=== PATIENT | female | born 1990 | race Caucasian/White ===

== ENCOUNTER 2017-07-17 12:20 | Emergency (ER) | payer OTHER ==
[2017-07-17] MEDS ORDERED: TYLENOL EXTRA STRENGTH 500 MG PO STA (12:31)
[2017-07-17] MEDS ORDERED: Sodium Chloride 0.9% 1000 ML 1,000 ML IV STA (12:32)
[2017-07-17] MEDS ORDERED: Sodium Chloride 0.9% 1000 ML 1,000 ML ONE (12:33)
[2017-07-17] MEDS ORDERED: TYLENOL EXTRA STRENGTH 500 MG ONE (12:33)
[2017-07-17 12:39] LABS: Mean Cell Volume 90.9 fl (78-100); Mean Corpuscular Hemoglobin 29.5 pg (26-32); Platelet Count 332 K/mm3 (150-450); Red Blood Count 5.16 M/mm3 (4.1-5.4); Red Cell Distribution Width 14.3 % (11.5-14.0); White Blood Count 6.4 K/mm3 (4.0-10.5)
--- NOTE | 2017-07-17 12:40 | ERPHSYRPT ---
- History of Present Illness Time Seen by Provider: 07/17/17 12:26 Source: patient Exam Limitations: no limitations Patient Subjective Stated Complaint: PT STATES SHE WAS AWAKENED IN THE MIDDLE OF THE NIGHT WITH FEVER AND CHILLS. STATES SHE HAS BACK PAIN AND BODY ACHES. STATES SHE HAS A SORE THROAT AND DRY COUGH. Triage Nursing Assessment: PT FLUSHED , WARM, DRY. PT AMBULATERD INTO ER WITHOUT DIFFICULTY. TEMP 100.5. Physician History: 27 y/o female comes to the ER with complaints of sore throat, cough, muscle aches, weakness, fever and chills. Pt arrives with a fever of 100.5. Pt has been drinking less and arrives with a HR in the 120's. Pt also admits to shortness of breath. No sick contacts and the patient denies any sick contacts. Timing/Duration: yesterday Cough Quality/Degree: mild Allergies/Adverse Reactions: No Known Drug Allergies Allergy (Unverified 07/17/17 12:26) Hx Tetanus, Diphtheria Vaccination/Date Given: Yes (UP TO DATE) Hx Influenza Vaccination/Date Given: No Hx Pneumococcal Vaccination/Date Given: No Immunizations Up to Date: Yes - Review of Systems Constitutional: Fever, Chills, Weakness Eyes: No Symptoms Ears, Nose, & Throat: No Symptoms, Nose Congestion, Throat Pain Respiratory: Cough, Dyspnea Cardiac: No Chest Pain, No Edema, No Syncope Abdominal/Gastrointestinal: No Abdominal Pain, No Nausea, No Vomiting, No Diarrhea Genitourinary Symptoms: No Dysuria Musculoskeletal: No Back Pain, No Neck Pain Skin: No Rash Neurological: No Dizziness, No Focal Weakness, No Sensory Changes Psychological: No Symptoms Endocrine: No Symptoms All Other Systems: Reviewed and Negative - Past Medical History Pertinent Past Medical History: Yes GI Medical History: Gallbladder Disease - Past Surgical History Past Surgical History: No - Social History Smoking Status: Current every day smoker How long have you smoked: 13 Exposure to second hand smoke: Yes Drug Use: none Patient Lives Alone: No - Female History Hx Last Menstrual Period: JUL 01 2017 Hx Now: No - Nursing Vital Signs Nursing Vital Signs: Initial Vital Signs Temperature 100.5 F 07/17/17 12:21 Pulse Rate 116 H 07/17/17 12:21 Respiratory Rate 18 07/17/17 12:21 Blood Pressure 124/73 07/17/17 12:21 O2 Sat by Pulse Oximetry 100 07/17/17 12:21 Pain Scale Pain Intensity 10 - Physical Exam General Appearance: mild distress, alert Eye Exam: PERRL/EOMI, eyes nml inspection Ears, Nose, Throat Exam: normal ENT inspection, TMs normal, pharynx normal, moist mucous membranes Neck Exam: normal inspection, non-tender, supple, full range of motion Respiratory Exam: normal breath sounds, lungs clear, No respiratory distress Cardiovascular Exam: regular rate/rhythm, tachycardia Gastrointestinal/Abdomen Exam: soft, No tenderness Back Exam: normal inspection, No CVA tenderness, No vertebral tenderness Extremity Exam: normal inspection, normal range of motion Neurologic Exam: alert, oriented x 3, cooperative, normal mood/affect, sensation nml, No motor deficits Skin Exam: normal color, warm, dry, No rash Lymphatic Exam: No adenopathy SpO2: 100 Oxygen Delivery: Room Air - Course Nursing assessment & vital signs reviewed: Yes Ordered Tests: Active Orders 24 hr Category Date Time Status IV Insertion STAT Care 07/17/17 12:34 Active CHEST 2 VIEWS (PA AND LAT) Stat Exams 07/17/17 12:35 Completed BLOOD CULTURE Stat Lab 07/17/17 13:00 Received CBC W DIFF Stat Lab 07/17/17 12:30 Completed CMP Stat Lab 07/17/17 12:30 Completed CULTURE, THROAT Stat Lab 07/17/17 13:00 Received Manual Differential NC Stat Lab 07/17/17 12:30 Completed STREP SCREEN-BETA A Stat Lab 07/17/17 13:00 Completed Medication Summary Discontinued Medications Generic Name Dose Route Start Last Admin Trade Name Nestor PRN Reason Stop Dose Admin Acetaminophen 1,000 mg 07/17/17 12:31 07/17/17 12:33 Tylenol Extra Strength 500 Mg PO 07/17/17 12:32 1,000 mg STAT STA Administration Acetaminophen Confirm 07/17/17 12:33 Tylenol Extra Strength 500 Mg Administered 07/17/17 12:34 Dose 1,000 mg .ROUTE .STK-MED ONE Sodium Chloride 1,000 mls @ 999 mls/hr 07/17/17 12:32 07/17/17 12:34 Sodium Chloride 0.9% 1000 Ml IV 07/17/17 13:32 999 mls/hr .Q1H1M STA Administration Sodium Chloride Confirm 07/17/17 12:33 Sodium Chloride 0.9% 1000 Ml Administered 07/17/17 12:34 Dose 1,000 mls @ ud .ROUTE .STK-MED ONE Oseltamivir Phosphate 75 mg 07/17/17 13:38 Tamiflu 75mg Capsule PO 07/17/17 13:39 STAT ONE Lab/Rad Data: Laboratory Result Diagrams 07/17/17 12:30 07/17/17 12:30 Laboratory Results 07/17/17 07/17/17 07/17/17 Range/Units 13:00 12:30 12:30 WBC 6.4 (4.0-10.5) K/mm3 RBC 5.16 (4.1-5.4) M/mm3 Hgb 15.2 (12.0-16.0) gm/dl Hct 46.9 (35-47) % MCV 90.9 (78-100) fl MCH 29.5 (26-32) pg MCHC 32.4 (32-36) g/dl RDW 14.3 H (11.5-14.0) % Plt Count 332 (150-450) K/mm3 MPV 10.0 H (6-9.5) fl Segmented Neutrophils 85 H (36.0-66.0) % Band Neutrophils 1 (0.0-2.0) % Lymphocytes (Manual) 9 L (24-44) % Monocytes (Manual) 3 (0.0-12.0) % Differential Comment NORMAL Atypical Lymphocytes 2 % Platelet Estimate NORMAL (NORMAL) Sodium 135 L (136-145) mEq/L Potassium 3.7 (3.5-5.1) mEq/L Chloride 97 L (98-107) mEq/L Carbon Dioxide 24.9 (21-32) mEq/L Anion Gap 16.3 H (5-15) MEQ/L BUN 7 L (9-20) mg/dL Creatinine 1.10 (0.55-1.30) mg/dl Estimated GFR > 60 ML/MIN Glucose 116 H (70-110) MG/DL Calcium 9.3 (8.5-10.1) mg/dL Total Bilirubin 0.40 (0.2-1.0) mg/dL AST 109 H (15-37) U/L ALT 419 H (12-78) U/L Alkaline Phosphatase 136 H (46-116) U/L Serum Total Protein 8.9 H (6.4-8.2) gm/dL Albumin 4.0 (3.4-5.0) g/dL Influenza Type A Ag (NEGATIVE) Influenza Type B Ag (NEGATIVE) RSV (PCR) (Negative) Streptococcus Screen NEGATIVE (Negative) 07/17/17 Range/Units 12:30 WBC (4.0-10.5) K/mm3 RBC (4.1-5.4) M/mm3 Hgb (12.0-16.0) gm/dl Hct (35-47) % MCV (78-100) fl MCH (26-32) pg MCHC (32-36) g/dl RDW (11.5-14.0) % Plt Count (150-450) K/mm3 MPV (6-9.5) fl Segmented Neutrophils (36.0-66.0) % Band Neutrophils (0.0-2.0) % Lymphocytes (Manual) (24-44) % Monocytes (Manual) (0.0-12.0) % Differential Comment Atypical Lymphocytes % Platelet Estimate (NORMAL) Sodium (136-145) mEq/L Potassium (3.5-5.1) mEq/L Chloride (98-107) mEq/L Carbon Dioxide (21-32) mEq/L Anion Gap (5-15) MEQ/L BUN (9-20) mg/dL Creatinine (0.55-1.30) mg/dl Estimated GFR ML/MIN Glucose (70-110) MG/DL Calcium (8.5-10.1) mg/dL Total Bilirubin (0.2-1.0) mg/dL AST (15-37) U/L ALT (12-78) U/L Alkaline Phosphatase (46-116) U/L Serum Total Protein (6.4-8.2) gm/dL Albumin (3.4-5.0) g/dL Influenza Type A Ag POSITIVE (NEGATIVE) Influenza Type B Ag NEGATIVE (NEGATIVE) RSV (PCR) NEGATIVE (Negative) Streptococcus Screen (Negative) - Progress Progress: improved Progress Note: 07/17/17 13:40 Pt feels better after receiving NS fluids. The patient is influenza A positive. The rest of the labs are unremarkable. CXR is negative. The rapid strep is negative. Pt will be d/c home on 5 days of tamiflu. - Departure Time of Disposition: 13:41 Departure Disposition: Home Clinical Impression: Influenza A, Fever Condition: Stable Critical Care Time: No Instructions: Fever (Symptom) -- Adult, Influenza -- Adult Additional Instructions: Follow up with your primary care doctor if you should continue to have fever, chills, weakness, muscle aches, sore throat or cough. Finish the tamiflu until completion. Prescriptions: Oseltamivir Phosphate [Tamiflu] 75 mg PO BID #9 capsule
--- NOTE | 2017-07-17 13:01 | XRAY ---
Indication: Flu symptoms. Comparison: None PA/lateral chest demonstrates normal heart, lungs, and bony thorax.
[2017-07-17 13:11] LABS: ATYPICAL LYMPHS 2 %; BAND 1 % (0.0-2.0); Total Cells Counted 100
[2017-07-17 13:12] LABS: ALKALINE PHOSPHATASE 136 U/L (46-116); ANION GAP 16.3 MEQ/L (5-15); BLOOD UREA NITROGEN 7 mg/dL (9-20); CHLORIDE 97 mEq/L (98-107); Carbon Dioxide 24.9 mEq/L (21-32); Glucose 116 MG/DL (70-110); Platelet Estimate NORMAL (NORMAL); Potassium 3.7 mEq/L (3.5-5.1); SGOT/AST 109 U/L (15-37); SGPT/ALT 419 U/L (12-78); SODIUM 135 mEq/L (136-145); Total Protein 8.9 gm/dL (6.4-8.2)
[2017-07-17] MEDS ORDERED: Tamiflu 75MG Capsule PO ONE ×2 (13:38→13:43)
[2017-07-17 13:48] VITALS: BP 107/60; PULSE 106; O2SAT 99
== END 2017-07-17 13:59 | disposition home or self-care (01) ==
LOC: ED 12:20
DX: J11.1 Influenza due to unidentified influenza virus with other respiratory manifestations (principal); R50.9 Fever, unspecified
CPT/HCPCS: 36000; 36415; 71020; 80053; 85025; 87040; 87070; 87430; 87631; 99284; A9270-GY

== ENCOUNTER 2017-09-12 19:18 | Emergency (ER) | payer OTHER ==
[2017-09-12] MEDS ORDERED: CLINDAMYCIN-D5W 900 MG/50 ML*** 900 MG/50 ML BAG IV STA (20:09)
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
[2017-09-12] MEDS ORDERED: CLINDAMYCIN-D5W 900 MG/50 ML*** 900 MG/50 ML BAG IV ONE (20:26)
[2017-09-12 21:07] LABS: BASOPHIL % 0.3 % (0.0-0.4); Basophil (Absolute #) 0.03 (0-0.4); Eosinophil % 0.8 % (0.00-5.0); Eosinophil (Absolute #) 0.09 (0-0.5); Granulocyte Absolute (ANC) 7.48 (1.4-6.9); Granulocytes % 66.6 % (36.0-66.0); Hematocrit 39.4 % (35-47); Hemoglobin 12.5 gm/dl (12.0-16.0); Lymphocyte (Absolute #) 2.48 (1.0-4.6); Lymphocytes % 22.1 % (24.0-44.0); Mean Cell Volume 94.5 fl (78-100); Mean Corpuscular Hgb Concent. 31.7 g/dl (32-36); Mean Platelet Volume 9.9 fl (6-9.5); Monocyte (Absolute #) 1.15 (0.0-1.3); Monocytes % 10.2 % (0.0-12.0); Platelet Count 387 K/mm3 (150-450); Red Blood Count 4.17 M/mm3 (4.1-5.4); Red Cell Distribution Width 15.1 % (11.5-14.0); White Blood Count 11.2 K/mm3 (4.0-10.5)
[2017-09-12 21:29] LABS: Erythrocyte Sedimentation Rate 17 mm/hr (0-20)
[2017-09-12 22:04] VITALS: PULSE 74
[2017-09-12] MEDS ORDERED: CLEOCIN 150 MG CAPSULE PO ONE (22:36)
[2017-09-12] MEDS ORDERED: NORCO 5/325 MG PO ONE (22:37)
[2017-09-12] MEDS ORDERED: SILVADENE 50 GM TP ONE ×2 (22:40→22:46)
[2017-09-12] MEDS ORDERED: NORCO 5/325 MG ONE (22:46)
[2017-09-12] MEDS ORDERED: CLEOCIN 150 MG CAPSULE ONE (22:46)
[2017-09-12 23:04] VITALS: BP 102/74; O2SAT 98
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
== END 2017-09-12 23:10 | disposition home or self-care (01) ==
LOC: ED 19:18
DX: L03.011 Cellulitis of right finger (principal); T23.221A Burn of second degree of single right finger (nail) except thumb, initial encounter; T31.0 Burns involving less than 10% of body surface; X15.3XXA Contact with hot saucepan or skillet, initial encounter
CPT/HCPCS: 36000; 36415; 73130; 85025; 85652; 96365; 99284; A9270-GY